=== PATIENT | female | born 1990 | race Two or more races ===

== ENCOUNTER 2022-01-20 04:56 | Day surgery (SDC) | payer OTHER ==
[~2022-01-20 04:56] MED LIST: CLONAZEPAM1 MG PO; SYNTHROID137 MCG PO
== END 2022-01-20 11:00 | disposition home or self-care (01) ==
LOC: CIR.AMB 04:56
PROVIDERS: ATTEND Obstetrics & Gynecology
DX: N70.91 Salpingitis, unspecified (principal); N83.8 Other noninflammatory disorders of ovary, fallopian tube and broad ligament; Z30.2 Encounter for sterilization; Z86.16 Personal history of COVID-19; E03.9 Hypothyroidism, unspecified